=== PATIENT | male | born 1940 | race Caucasian/White ===

== ENCOUNTER 2018-08-01 06:24 | Inpatient (IN) ==
[2018-08-01] MEDS ORDERED: ASPIRIN PO ONE (06:39)
[2018-08-01] MEDS ORDERED: NITROGLYCERIN SL PRN (06:39)
--- NOTE | 2018-08-01 07:09 | Diag Imaging Result Doc PS360 ---
EXAM: CHEST-2 VIEWS 08/01/2018 HISTORY: chest pain TECHNIQUE: PA and lateral chest COMMENT: There are bilateral pleural effusions. This was also the case on 07/29/2018. There is increased interstitial opacity generally. This may be slightly worse than on the previous study. There is apical pleural thickening particularly on the right. Compared to 12/20/2016 the pleural fluid collections are greater in the interstitial opacities are worse although there was considerable interstitial opacity and pleural thickening at that time. IMPRESSION: Pleural effusions and pulmonary edema superimposed on pulmonary fibrosis. Electronically signed by Adrian Philip 08/01/2018 7:07 AM
[2018-08-01] MEDS ORDERED: ZOFRAN IV ONE (07:10)
[2018-08-01] MEDS ORDERED: DILAUDID IV ONE ×2 (07:10→09:18)
--- NOTE | 2018-08-01 07:15 | PROVIDER DOCUMENTATION ---
HPI-Abdominal Pain/GI Problem - General Chief Complaint: Chest Pain Stated Complaint: Abd pain Time Seen by Provider: 08/01/18 07:02 Source: patient, family () Allergies/Adverse Reactions: Patient Allergies Allergy/AdvReac Type Severity Reaction Status Date / Time No Known Allergies Allergy Verified 08/01/18 07:37 Home Medications: Home Medication List Medication Instructions Recorded Confirmed Last Taken Type Calcitriol 0.25 mcg PO EVERY OTHER DAY 10/13/14 02/05/17 02/05/17 07:30 History Isosorbide Mononitrate [Isosorbide 60 mg PO QAM 10/13/14 02/05/17 02/05/17 07:30 History Mononitrate ER] Metoprolol Succinate E.r. [Toprol 100 mg PO DAILY 10/13/14 02/05/17 02/05/17 07:30 History Xl] PRAVAstatin [Pravachol] 40 mg PO QHS 10/13/14 02/05/17 02/05/17 07:30 History Albuterol Sulfate [Ventolin Hfa] 2 puff IH Q4-6H PRN PRN 12/18/16 02/05/17 02/05/17 07:30 History Felodipine [Plendil] 10 mg PO DAILY 12/18/16 02/05/17 02/05/17 07:30 History Montelukast Sodium 10 mg PO DAILY 12/18/16 02/05/17 02/05/17 07:30 History Aspirin [Aspirin EC] 1 tab PO DAILY 12/19/16 02/05/17 01/30/17 History Fluticasone 50 Mcg Nasal [place] 1 spray LAWANDA DAILY 01/31/17 02/05/17 02/05/17 07:30 History [Flonase] Iron Fum,Ps/Folic/Bcomp,C No.9 1 each PO DAILY 01/31/17 02/05/17 02/05/17 07:30 History [Folivane-Plus Capsule] Nitroglycerin 0.4 mg SL PRN PRN 01/31/17 02/05/17 02/05/17 07:30 History Hydrocodone/APAP 7.5 mg/325 mg 1 ea PO Q4H PRN #25 tab 02/05/17 Unknown Rx [[place]-7.5] Iron Fum,Ps/Folic/Bcomp,C No.9 1 each PO DAILY 02/05/17 02/05/17 02/05/17 07:30 History [Folivane-Plus Capsule] - History of Present Illness-ABD Nature of Presenting Problems: Patient complains of epigastric pain worse since yesterday. Pain is described as sharp, worsened with deep breath or coughing. Also associated with vomiting and constipation. Last BM was yesterday but small. Denies fever, Abdominal Pain Onset Location: reports: epigastric Review of Systems - Adult - REVIEW OF SYSTEMS - ADULT Constitutional: reports: no symptoms reported Eyes: reports: no symptoms reported Ears, Nose, Mouth & Throat: reports: no symptoms reported Cardiovascular: reports: see HPI Respiratory: reports: see HPI Gastrointestinal: reports: see HPI Genitourinary: reports: no symptoms reported Musculoskeletal: reports: no symptoms reported Integumentary: reports: no symptoms reported Neurological: reports: no symptoms reported Psychiatric: reports: no symptoms reported Endocrine: reports: no symptoms reported Hematologic/Lymphatic: reports: no symptoms reported Allergic/Immunologic: reports: no symptoms reported All Other Systems: Reviewed and Negative Past History - Adult - PAST MEDICAL HISTORY-ADULT Review of Records: reports: Old Records Reviewed Cardiovascular: reports: HTN Respiratory: reports: denies history Genitourinary: reports: ESRD Physical Exam-General - PHYSICAL EXAM-ADULT Initial Vital Signs Reviewed: Yes - CONSTITUTIONAL General Appearance: alert, mild distress - EYES Eyes: PERRL/EOMI, pink conjunctivae, anisocoria - HEAD, EARS, NOSE, MOUTH & THROAT HENMT: normocephalic/atraumatic, moist mucous membranes, normal ENT inspection - NECK Neck: non-tender, full range of motion - RESPIRATORY Respiratory: chest non-tender, decreased breath sounds, accessory muscle use - CARDIOVASCULAR Cardiovascular: normal peripheral pulses, no edema, tachycardia - GASTROINTESTINAL (ABDOMEN) Abdominal Exam: soft, no organomegaly, no pulsatile mass, tenderness (epi gastric) - LYMPHATIC Lymphatic: no adenopathy - MUSCULOSKELETAL Back Exam: normal inspection, no CVA tenderness Extremity: normal range of motion, non-tender, normal gait - SKIN Integumentary: normal color, normal turgor - NEUROLOGIC 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, grossly normal, no motor/sensory deficits - PSYCHIATRIC Psych/Mental Status: normal mood/affect, normal thought content, normal thought process, oriented x 3 Progress - PLAN OF CARE/RESULTS Progress/Plan/Lab Results: Vital Signs - 8 hr 08/01/18 06:26 Temperature 97.9 F Pulse Rate 113 H Respiratory Rate 29 H Blood Pressure 131/71 O2 Sat by Pulse Oximetry 86 L Orders Category Date Time Status Cardiac Monitoring DIRECTED Care 08/01/18 06:40 Active Oxygen Therapy- ED Nursing DIRECTED Care 08/01/18 06:40 Active Saline Loc NOW Care 08/01/18 06:40 Active CHEST-2 VIEWS [RAD] Stat Exams 08/01/18 06:[address] ABDOMEN/PELVIS W/O CONTRAST [CT] Stat Exams 08/01/18 07:09 Ordered CBC WITH ELECTRONIC DIFF [HEME] Stat Lab 08/01/18 06:40 Uncollected CK PROFILE [SP CHEM] Stat Lab 08/01/18 06:40 Uncollected COMPREHENSIVE METABOLIC PANEL [CHEM] Stat Lab 08/01/18 06:40 Uncollected LIPASE [CHEM] Stat Lab 08/01/18 07:09 Uncollected PRO B-NATRIURETIC PEPTIDE Stat Lab 08/01/18 06:40 Uncollected PROTIME WITH INR [COAG] Stat Lab 08/01/18 06:40 Uncollected PTT [COAG] Stat Lab 08/01/18 06:40 Uncollected TROPONIN T Stat Lab 08/01/18 06:40 Uncollected Aspirin Med 08/01/18 06:39 Discontinued 325 mg PO NOW ONE Hydromorphone [Dilaudid] Med 08/01/18 07:10 Once 0.5 mg IV NOW ONE Nitroglycerin Sl [Nitroglycerin] Med 08/01/18 06:39 Active 0.4 mg SL Q5M PRN PRN Ondansetron [Zofran] Med 08/01/18 07:10 Once 4 mg IV NOW ONE CP/SOB/Palp >45 yrs of Age Stat Oth 08/01/18 06:39 Ordered Result Diagrams: 08/01/18 07:44 08/01/18 07:44 - REASSESSMENT Reassessment #1 Time Reassessed: 09:00 Status: improving - CONSULTS/PCP/HOSPITALIST Notification #1 *Consult/PCP/Hospitalist*: Dr. Kendall Time Discussed: 09:44 Consult Disposition: Will see in ED Departure - Departure Date of Disposition Decision: 08/01/18 Time of Disposition Decision: 09:44 DIAGNOSIS: Perforation bowel, Atrial fibrillation with rapid ventricular response Abdominal pain Qualifiers: Abdominal location: generalized Qualified Code(s): R10.84 - Generalized abdominal pain Disposition: ADMITTED INPATIENT 09 Certified Medical Emergency: Emergent Condition: Critical - Critical Care Note This patient required my direct & personal management of CC.: No Attestation - Physician/ KYE Attestation Patient care was provided by Advanced Practice Provider:: No The physician spent face to face time with patient:: Yes Advanced Practice Provider documentation review:: Supervising physician onsite and consulted in the evaluation and care of this patient. The physician did have a face to face encounter with the patient.
--- NOTE | 2018-08-01 08:21 | Diag Imaging Result Doc PS360 ---
CT ABDOMEN/PELVIS W/O CONTRAST - 08/01/2018 INDICATION: abd pain, acute kidney injury COMPARISON: None FINDINGS: There are moderate bibasilar pleural effusions. There is hazy interstitial pulmonary edema in the lung bases. There is advanced COPD. Heart size is top normal. The kidneys are severely atrophic bilaterally. No renal obstruction. There are several cysts in the kidneys bilaterally. There is severely, severely heavy calcification of the abdominal aorta and its pelvic branches. There is trace ascites. There is trace intraperitoneal free air. The source is unclear. There is significant diverticulosis of the distal colon. There is diffuse urinary bladder wall thickening that is nonspecific. Prostate and rectum are normal. No abnormal bowel dilation. There are advanced degenerative changes of the spine. No acute or suspicious bony lesion. IMPRESSION: 1. Congestive heart failure. 2. Obvious chronic renal failure with marked atrophy of the kidneys. 3. Advanced COPD. 4. Trace ascites. 5. Extremely severe vascular disease. 6. Trace peritoneal free air. 7. This report was discussed with Dr. Merchant on 08/01/2018 at 8:18 AM and was readback. This exam was performed using automated exposure control, adjustment of mA or kV according to patient size, and/or use of iterative reconstruction technique Electronically signed by Marino Fuentes 08/01/2018 8:19 AM
[2018-08-01 08:30] LABS: BASO# 0.02 X1000 (0.0-0.2); BASO% 0.2 % (0.0-0.8); EOS# 0.09 X1000 (0.0-0.7); EOS% 0.9 % (0.0-10.0); HEMOGLOBIN 12.6 g/dL (14.0-18.0); IMM GRAN# 0.07 X1000 (0.0-0.04); IMM GRAN% 0.7 % (0.0-0.5); LYMPH# 3.22 X1000 (1.2-3.4); LYMPH% 33.9 % (20.5-51.1); MCH 31.6 PG (27-31); MCHC 32.3 g/dL (33-37); MCV 97.7 FL (81-99); MONO# 0.73 X1000 (0.11-0.59); MONO% 7.7 % (1.7-9.3); MPV 10.7 FL (7.4-10.4); NEUT# 5.38 X1000 (1.4-6.5); NEUT% 56.6 % (42.2-75.2); PLT 273 X1000 (130-400); RBC 3.99 XMIL (4.7-6.1); RDW 16.4 % (11.5-14.5); WBC 9.51 X1000 (4.8-10.8)
[2018-08-01 08:33] LABS: INR 1.6; PROTIME 20.2 Seconds (11.0-16.0)
[2018-08-01 08:37] LABS: ALB/GLOB RATIO 1.1; ALBUMIN 3.7 g/dL (3.5-5.0); CALCIUM 8.9 mg/dL (8.8-10.2); POTASSIUM 4.4 mmol/L (3.5-5.1); TOTAL BILIRUBIN 0.45 mg/dL (0.20-1.00)
[2018-08-01 08:38] LABS: CREATININE 5.4 mg/dL (0.7-1.2)
[2018-08-01] MEDS ORDERED: DILAUDID ONE (09:21)
--- NOTE | 2018-08-01 10:44 | EKG Report ---
Test Performed on : 08/01/2018 06:29:50 AM Test Reason : ED. No order in [place] Blood Pressure : / mmHG Vent. Rate : 105 BPM Atrial Rate : 125 BPM P-R Int : 000 ms QRS Dur : 100 ms QT Int : 358 ms P-R-T Axes : 000 009 063 degrees QTc Int : 473 ms Atrial fibrillation. with rapid ventricular response. with premature ventricular or aberrantly conduc avinash complexes. Nonspecific T wave abnormality Abnormal ECG When compared with ECG of 05-FEB-2017 11:12, Vent. rate has increased BY 35 BPM Nonspecific T wave abnormality now evident in Anterolateral leads Unconfirmed Result
[2018-08-01] MEDS ORDERED: PROTONIX IV ONE ×3 (10:46→11:30)
[2018-08-01] MEDS ORDERED: ZOSYN 3.375 GM in NS 50 ML IV ONE (10:46)
[2018-08-01] MEDS ORDERED: NS 500 ML IV ONE (10:46)
[2018-08-01] MEDS ORDERED: SODIUM CHLORIDE 0.9% INJ ONE ×2 (10:46→11:20)
[2018-08-01] MEDS ORDERED: DIFLUCAN 100 MG/NS 100 MG/50 ML IVPB IV ONE (10:46)
[2018-08-01] MEDS ORDERED: ZOFRAN IV PRN (10:56)
[2018-08-01] MEDS ORDERED: PROTONIX 80 MG in NS 80 ML IV ONE (10:56)
[2018-08-01] MEDS: ZOSYN 2.25 GM in NS 50 ML IV SCH ×2 (11:15→20:33)
--- NOTE | 2018-08-01 11:21 | ED EKG INTERP ---
This chart was entered by Dunia Katz Scribe, acting as scribe for Amos Merchant MD. EKG Interpretation - EKG Time of EKG reading by physician:: 06:29 EKG Read and Signed by:: Amos Merchant EKG Interpretation (*Must complete 3 of following elements*): Abnormal Rate: 105 Rhythm: afib with rvr with premature ventricular or aberrantly conducted complexes [place]: normal QRS: normal [place] Interval: normal ST Wave: normal Comments: nonspecific t wave abnormality Attestation - Physician/ KYE Attestation Patient care was provided by Advanced Practice Provider:: No The physician spent face to face time with patient:: Yes Advanced Practice Provider documentation review:: Supervising physician onsite and consulted in the evaluation and care of this patient. The physician did have a face to face encounter with the patient. This chart was documented by the indicated scribe, (Dunia Katz Scribe) and accurately reflects the services I performed and decisions made by me, Amos Merchant MD, as attested by the provider's signature.
[2018-08-01] MEDS: NS 1,000 ML IV SCH (11:45)
[2018-08-01] MEDS ORDERED: DIFLUCAN 100 MG/NS 100 MG/50 ML IVPB IV SCH (12:00)
[2018-08-01] MEDS ORDERED: PROTONIX 80 MG in NS 80 ML IV SCH (12:00)
--- NOTE | 2018-08-01 13:29 | Diag Imaging Result Doc PS360 ---
EXAM: FLAT/UPRIGHT ABD/1 VIEW CHEST HISTORY: abdominal pain, free air TECHNIQUE: Flat and upright with chest, three views COMPARISON: 6:50 AM FINDINGS: There are increased interstitial markings throughout the lungs. These are more prominent than on the prior study. Small to moderate pleural effusions as well. No bowel obstruction. No organomegaly. Free air appreciated on the recent CT is not demonstrated on the plain films. IMPRESSION: Worsening lung infiltrates. Electronically signed by Delbert Vigil 08/01/2018 1:26 PM
--- NOTE | 2018-08-01 13:31 | HISTORY AND PHYSICAL ---
CHIEF COMPLAINT: Abdominal pain. HISTORY OF PRESENT ILLNESS: This is a 78-year-old male who reports a 3-day history of epigastric pain with nausea and occasional vomiting. The pain has been constant and progressive, worsened with deep breaths or direct pressure, lessened some with Dilaudid in the emergency room. No fever or chills although he did break out in a sweat earlier this morning. He has had no prior episodes like this. He denies regular use of NSAID. He did chew 5 aspirin this morning because he was concerned he had a heart attack. He does have chronic dyspnea on exertion, and he does wear oxygen at night for his chronic pulmonary fibrosis and emphysema. He denies hematemesis, diarrhea, constipation or other systemic complaints. PAST MEDICAL HISTORY: Coronary artery disease, status post stents; PR x 3; carotid stenosis; end- stage renal disease; pulmonary fibrosis; emphysema; pulmonary hypertension; high blood pressure. PAST SURGICAL HISTORY: Open appendectomy; left carotid endarterectomy; left brachiocephalic AV fistula. ALLERGIES: No known drug allergies. HOME MEDICATIONS: Tums after meals; Pravastatin 40 mg p.o. daily; Luisa-Libby; Mirtazapine; Eliquis 2.5 mg 1 p.o. b.i.d.; Ventolin inhaler 98 mcg p.r.n.; fluticasone 50 mcg daily. SOCIAL HISTORY: He has quit smoking but previously has a 79-38-vnhv-year history. No alcohol or illicit drug use. FAMILY HISTORY: Notable for coronary artery disease. REVIEW OF SYSTEMS: Ten systems reviewed and negative except as noted above. PHYSICAL EXAMINATION: VITAL SIGNS: Temperature 97.4; pulse 112; respiratory rate 19; blood pressure 124/80; O2 sat 97%. GENERAL: This is an elderly chronically ill-appearing male who looks his stated age. He is ill- appearing but not in acute distress. HEENT: Normocephalic, atraumatic. Extraocular muscles intact. Pupils equal, round and reactive to light. Sclerae anicteric. NECK: Supple. No thyromegaly. CARDIOVASCULAR: Tachycardic and regular. RESPIRATORY: Bilateral breath sounds but decreased in the bases. No increased work of breathing. GASTROINTESTINAL: Soft, nondistended. He is tender in the epigastrium. No rebound or guarding. No organomegaly or mass. No hernias. EXTREMITIES: No clubbing, cyanosis, or edema. SKIN: Warm and dry. No rash. MUSCULOSKELETAL: Moves all extremities equally and well. LABORATORY: White blood cell count 9.5, hemoglobin 12.6, hematocrit 39, platelet count 273,000, INR 1.6, PTT 35, sodium 136, potassium 4.4, chloride 92, C02 24, BUN 37, creatinine 5.4, glucose 155, calcium 8.9, AST 85, ALT 192, total bilirubin 0.4, alkaline phosphate 117, BNP greater than 35,000, serum lactate 1.7, lipase 27. IMAGING: Chest x-ray this morning shows pleural effusions, pulmonary edema and superimposed pulmonary fibrosis. His pleural effusions are slightly worse than the previous x-ray on 07/29/2018. CT of the abdomen and pelvis was performed without contrast showing moderate bibasilar pleural effusion, hazy interstitial pulmonary edema, advanced COPD, cardiomegaly, atrophic kidneys, severely calcified abdominal aorta and pelvic branches. There is trace ascites. There is trace intraperitoneal free air, the source is unclear. There is significant diverticulosis but not diverticulitis of the distal colon. There is diffuse bladder wall thickening. ASSESSMENT AND PLAN: A 78-year-old male with abdominal pain and probable perforated viscus. It appears to be a limited amount of perforation at this time. His hemodynamic status right now is doing okay. He is a high-risk patient, given his coronary artery disease and pulmonary fibrosis and emphysema. My plan for the time being is a Protonix drip, saline hydration, Zosyn, Diflucan and close observation. Dr. Gonsalez will assist with his dialysis needs. Dr. Ornelas has been contacted and will assist with his pulmonary needs and critical care. I have discussed this with the family and the possibility to need to operate to explore and handle whatever his bowel injury is, but for now we are in agreement to treat him conservatively over the next few hours and see how he does. cc: Amos Kendall MD
--- NOTE | 2018-08-01 14:39 | EKG Report ---
Test Performed on : 08/01/2018 10:57:01 AM Test Reason : ED. No order in [place] Blood Pressure : / mmHG Vent. Rate : 124 BPM Atrial Rate : 131 BPM P-R Int : 000 ms QRS Dur : 092 ms QT Int : 296 ms P-R-T Axes : 000 -03 021 degrees QTc Int : 425 ms Atrial fibrillation. with rapid ventricular response. Nonspecific T wave abnormality Abnormal ECG When compared with ECG of 01-AUG-2018 10:56, (Unconfirmed) QRS axis shifted right Unconfirmed Result
[2018-08-01] MEDS: DILAUDID IV PRN (16:58)
[2018-08-02] MEDS: DILAUDID IV PRN ×4 (01:03→23:13)
--- NOTE | 2018-08-02 01:05 | PULMONOLOGY CONSULTATION ---
DATE: 08/01/2018 REQUESTING PHYSICIAN: Dr. Amos Kendall. REASON FOR CONSULTATION: Hypoxemic respiratory failure in a patient known to you. HISTORY OF PRESENT ILLNESS: Mr. Bassett is a 78-year-old white male with an 80 pack-year history for tobacco, COPD, biapical fibrosis, with pleural effusions, who is followed in my clinic. The patient had a large pleural effusion which was transudative in character and subsequently resolved with initiation of hemodialysis. The patient did well for a while, but has been losing weight. He was recently seen in my office and was hypoxemic upon arrival, and did have a cough and bronchitis. He was initiated on oxygen in my office and an antibiotic for the bronchitis with plans to see Dr. Gonsalez to see if his dry weight could be further reduced given increasing pleural effusions. The patient developed some abdominal pain yesterday and it became more severe this morning. He also had episode of vomiting and constipation. He underwent a CT scan of the abdomen and pelvis which revealed evidence of free air. He has been evaluated by Dr. Kendall, who feels this is most likely a perforated gastric ulcer. He has been initiated on acid suppression and antibiotics in an attempt to avoid an abdominal surgery. The patient is currently resting quietly. PAST MEDICAL HISTORY: 1. Coronary artery disease status post myocardial infarction and stent placement. 2. End-stage renal disease, on hemodialysis. 3. Chronic obstructive pulmonary disease with component of pulmonary fibrosis. 4. Pulmonary hypertension. 5. Bilateral pleural effusions. 6. Status post left carotid endarterectomy. 7. Status post appendectomy. 8. History of nephrolithiasis. 9. History of bilateral thoracentesis. SOCIAL HISTORY: The patient has an 80 pack-year history for tobacco but does not currently smoke. No significant alcohol use. FAMILY HISTORY: Positive for strokes, coronary artery disease, diabetes mellitus, dementia, and aneurysms. REVIEW OF SYSTEMS: Limited and primarily related to the abdominal pain. PHYSICAL EXAMINATION: General: Reveals a frail, chronically ill-appearing male who currently appears comfortable. Vital signs: Blood pressure 98/64, heart rate 105, respiratory rate 17, oxygen saturation 93% on supplemental oxygen. HEENT: Pupils are equal and reactive. Oropharynx is clear. Neck: Supple. Chest: Reveals prolonged expiratory phase with decreased breath sounds in the lung bases. Cardiac: S1, S2. Abdomen: Soft with diminished bowel sounds. Extremities: Without edema. LABORATORIES: White blood count 9.5, hemoglobin 12.6, platelet count 273,000. Sodium 136, potassium 4.4, chloride 92, bicarbonate 24, BUN 57, creatinine 3.4. ProBNP 35,000. IMPRESSION: A 78-year-old with 1. Acute hypoxemic respiratory failure. 2. Bilateral pleural effusions. 3. Perforated abdominal viscus. 4. End-stage renal disease. 5. Coronary artery disease. DISCUSSION: A 78-year-old with problems outlined above. He is a high risk surgical candidate. He does have significant pleural effusions, but will not be able to tolerate aggressive dialysis during this hospitalization while he has an acute perforated viscus. The patient may require thoracentesis during this admission. PLAN: 1. Agree with observation in an attempt to avoid surgery. 2. Continue oxygen for hypoxemic respiratory failure. 3. Bronchodilators p.r.n. 4. Prognosis is guarded. cc: MD Amos Vázquez MD
[2018-08-02] MEDS: NS 1,000 ML IV SCH ×3 (01:07→22:43)
[2018-08-02] MEDS: ZOSYN 2.25 GM in NS 50 ML IV SCH ×3 (03:21→22:42)
[2018-08-02 04:48] LABS: BLOOD TYPE ARTERIAL; SAMPLE BLOOD
[2018-08-02 04:49] LABS: ALLEN TEST YES; BE -2.6 mmoll (-3.0-3.0); HCO3-(ACT) 22.8 mmoll (20.0-26.0); METHB 0.5 % (0.0-1.5); O2(CT) 15.1 mL/dL (15.0-23.0); O2HB 92.8 % (95.0-99.0); PO2(98.6) 80 mmHg (60-100); SAO2 94.1 % (95.0-100.0); THB 11.5 g/dL (11.5-17.4); pH(98.6) 7.27 (7.35-7.45)
[2018-08-02 04:50] LABS: MODALITY VENTIMASK; PCO2(98.6) 54 mmHg (35-45)
[2018-08-02 06:20] LABS: HEMATOCRIT 36.3 % (42.0-52.0); HEMOGLOBIN 11.6 g/dL (14.0-18.0); MPV 10.8 FL (7.4-10.4); RBC 3.63 XMIL (4.7-6.1); RDW 16.9 % (11.5-14.5); WBC 14.18 X1000 (4.8-10.8)
[2018-08-02 06:49] LABS: CALCIUM 8.5 mg/dL (8.8-10.2); CREATININE 6.4 mg/dL (0.7-1.2); POTASSIUM 5.9 mmol/L (3.5-5.1)
[2018-08-02] MEDS ORDERED: HEPARIN IV PRN (08:18)
[2018-08-02] MEDS ORDERED: NS 2,000 ML MISC PRN (08:18)
--- NOTE | 2018-08-02 08:50 | Diag Imaging Result Doc PS360 ---
ABDOMEN FLAT/UPRIGHT - 08/02/2018 INDICATION: abdominal pain COMPARISON: 08/01/2018 FINDINGS: There is a nonobstructive bowel gas pattern. No free air or abdominal calcifications. IMPRESSION: No acute disease. Electronically signed by Marino Fuentes 08/02/2018 8:47 AM
[2018-08-02] MEDS ORDERED: LMX 5 CREAM TOP ONE (09:01)
[2018-08-02] MEDS: VENTOLIN HFA INH PRN (09:30)
[2018-08-02] MEDS: FLONASE NAS SCH (11:40)
--- NOTE | 2018-08-02 19:22 | PULMONOLOGY PROGRESS NOTE ---
DATE: 08/02/2018 SUBJECTIVE: The patient is awake, alert, and conversant. He reports his shortness of breath has diminished. He reports his abdominal pain has diminished. OBJECTIVE: HEENT: Pupils are equal and reactive. Oropharynx appears clear. Neck: Supple. Chest: Reveals decreased breath sounds, both bases. Cardiac exam: S1, S2. Abdomen: Reveals mild tenderness with palpation. No significant rebound. Extremities: Reveal trace edema. IMAGING STUDIES: KUB abdomen reveals no acute disease. LABORATORIES: White blood count 14.2, hemoglobin 11.6, platelet count 220,000. Arterial blood gas reveals pH of 7.27, pCO2 of 84, pO2 of 80. Sodium 139, potassium 5.9, chloride 97, BUN 45, creatinine 6.4. IMPRESSION: A 78-year-old with: 1. Acute hypoxemic respiratory failure. 2. Acute hypercapnic respiratory failure. 3. Bilateral pleural effusions. 4. Perforated abdominal viscus with free air under the diaphragm. 5. End-stage renal disease. 6. Coronary artery disease. PLAN: 1. Continue observation of acute abdominal perforated viscus as outlined by General Surgery. 2. Continue oxygen for hypoxemic respiratory failure. 3. Continue bronchodilators. 4. Continue ICU monitoring. The patient remains critically ill. cc: MD Amos Vázquez MD
--- NOTE | 2018-08-02 22:40 | NEPHROLOGY CONSULTATION ---
DATE: 08/02/2018 REASON FOR CONSULTATION: Assistance with management. ATTENDING PHYSICIAN: Dr. Kendall. I was contacted directly by him to request my assistance. HISTORY OF PRESENT ILLNESS: Mr. Bassett is a 78-year-old, white male, who is well known to us. He has advanced COPD as well as hypertension, hyperlipidemia, vascular disease and ESRD. He states that he was in his usual health when he went to see Dr. Ornelas on . He states thereafter he began having abdominal pain and nausea. His symptoms were persistent on Saturday so he came to the emergency room for evaluation. CT of the abdomen disclosed subphrenic air and so he was evaluated by surgery and felt to have a perforated duodenal ulcer. Given his general health status, Dr. Kendall opted to observe without intervention. He has been in the intensive care unit since that time. Blood pressure is marginal but this is a frequent problem for him. He does not have chills, fevers, sweats, night sweats, etc. PAST MEDICAL HISTORY: As above. HOME MEDICATIONS: Include pravastatin, albuterol, montelukast, aspirin, fluticasone, nitroglycerin, multivitamin, folate, Integra, apixaban, mirtazapine. ALLERGIES: None. SOCIAL HISTORY, FAMILY HISTORY, REVIEW OF SYSTEMS: Otherwise noncontributory. PHYSICAL EXAMINATION: Vital Signs: Blood pressure 101/53, heart rate 117, respirations 31, afebrile. Generally: He was asleep, but easily arousable. No acute distress. Skin: Warm and dry. HEENT: Conjunctivae are pink. Pupils are equal. Oropharynx is dry. Neck: Neck veins are not distended. Trachea is midline. Heart: PMI is nondisplaced. Irregular rhythm, with intermittent tachycardia. No murmurs. Lungs: Have equal breath sounds. No crackles or wheezes. Abdomen: Mildly tender. Especially in the epigastrium. Bowel sounds are not present. Extremities: Have no edema, clubbing, or cyanosis. Neurologic: Grossly nonfocal. IMPRESSION: 1. Chronic kidney disease 5D. Tolerated dialysis well today. He is euvolemic. His potassium is moderately elevated this morning at 5.9, but that is appropriately managed with dialysis. 2. Hypotension. Chronic with him and he tolerates blood pressure in the 80s without difficulties so this is not addressed. 3. His antibiotics are dosed appropriately for his renal function. Continue care. cc: MD Amos Fernández MD
[2018-08-03 04:44] LABS: ALLEN TEST YES; BE 1.9 mmoll (-3.0-3.0); BLOOD TYPE ARTERIAL; HCO3-(ACT) 26.4 mmoll (20.0-26.0); O2(CT) 14.2 mL/dL (15.0-23.0); O2HB 97.3 % (95.0-99.0); PCO2(98.6) 41 mmHg (35-45); PO2(98.6) 140 mmHg (60-100); SAMPLE BLOOD; SAO2 99.4 % (95.0-100.0); THB 10.2 g/dL (11.5-17.4); pH(98.6) 7.42 (7.35-7.45)
[2018-08-03 04:45] LABS: MODALITY VENTIMASK
[2018-08-03] MEDS: ZOSYN 2.25 GM in NS 50 ML IV SCH ×3 (05:33→22:08)
--- NOTE | 2018-08-03 07:52 | Diag Imaging Result Doc PS360 ---
FLAT/UPRIGHT ABD/1 VIEW CHEST - 08/03/2018 INDICATION: pain TECHNIQUE: COMPARISON: 08/02/2018, 08/01/2018 FINDINGS: Stable moderate right and small left pleural effusions. Stable dense interstitial infiltrates throughout the lungs diffusely and bilaterally. Stable cardiomegaly. There is a nonobstructive bowel gas pattern. No free air or abnormal calcifications. IMPRESSION: No change from prior exams. Extensive abnormalities in the chest. No acute process in the abdomen. Electronically signed by Marino Fuentes 08/03/2018 7:50 AM
--- NOTE | 2018-08-03 08:11 | GENERAL SURGERY PROGRESS NOTE ---
DATE: 08/03/2018 SUBJECTIVE: 7:55 in the morning. He is afebrile. Says he feels about the same as yesterday. His heart rate is 108, blood pressure is 98/59. DIAGNOSTIC DATA: His white count is pending this morning. His blood gasses look okay on 50% Ventimask. X-ray of the abdomen does not show any free air. ASSESSMENT: We will continue with antibiotic therapy. If he continues stable tomorrow, perhaps he can start on some clear liquids. We will consider continue with our conservative course of action for now. cc: MD Amos Mcnally MD
[2018-08-03 08:47] LABS: ALB/GLOB RATIO 0.6; ALBUMIN 2.5 g/dL (3.5-5.0); CALCIUM 8.3 mg/dL (8.8-10.2); CREATININE 4.1 mg/dL (0.7-1.2); PHOSPHORUS 6.3 mg/dL (2.7-4.5); POTASSIUM 4.6 mmol/L (3.5-5.1); TOTAL BILIRUBIN 0.57 mg/dL (0.20-1.00); TOTAL PROTEIN 6.4 g/dL (6.3-8.3)
[2018-08-03] MEDS: VENTOLIN HFA INH PRN (09:54)
[2018-08-03] MEDS: FLONASE NAS SCH (10:46)
[2018-08-03 11:50] LABS: BASO# 0.04 X1000 (0.0-0.2); BASO% 0.3 % (0.0-0.8); EOS# 0.21 X1000 (0.0-0.7); EOS% 1.3 % (0.0-10.0); HEMATOCRIT 36.1 % (42.0-52.0); HEMOGLOBIN 11.3 g/dL (14.0-18.0); IMM GRAN# 0.04 X1000 (0.0-0.04); IMM GRAN% 0.3 % (0.0-0.5); LYMPH# 3.42 X1000 (1.2-3.4); LYMPH% 21.5 % (20.5-51.1); MCH 31.7 PG (27-31); MCHC 31.3 g/dL (33-37); MCV 101.4 FL (81-99); MONO# 1.18 X1000 (0.11-0.59); MONO% 7.4 % (1.7-9.3); MPV 10.3 FL (7.4-10.4); NEUT# 11.03 X1000 (1.4-6.5); NEUT% 69.2 % (42.2-75.2); PLT 194 X1000 (130-400); RBC 3.56 XMIL (4.7-6.1); RDW 17.1 % (11.5-14.5); WBC 15.92 X1000 (4.8-10.8)
[2018-08-03] MEDS: DILAUDID IV PRN ×2 (13:49→15:51)
--- NOTE | 2018-08-03 14:58 | PULMONOLOGY PROGRESS NOTE ---
DATE: 08/03/2018 SUBJECTIVE: The patient is awake and alert. He reports his abdominal pain has diminished. He continues to have significant dyspnea. OBJECTIVE: Vital Signs: Maximum temperature in the last 24 hours is 99.8 degrees, blood pressure 90/61, heart rate 117, oxygen saturation 96% on 5 L per nasal cannula. HEENT: Pupils are equal and reactive. Oropharynx is clear. Neck: Supple. Chest: Reveals diminished breath sounds both lung bases. Cardiac: Increased rate, regular rhythm. Abdomen: Soft. Bowel sounds are diminished. Extremities: Reveal no significant peripheral edema. LABORATORIES: Chest x-ray reveals pleural effusions and infiltrates, right greater than left, cardiomegaly. No free air noted. Arterial blood gas on 50% Ventimask, pH 7.42, pCO2 of 41, pO2 of 140. IMPRESSIONS: A 78-year-old with: 1. Acute hypoxemic respiratory failure. 2. Chronic hypercapnic respiratory failure. 3. Bilateral pleural effusions. 4. Perforated abdominal viscus with free air into the diaphragm. 5. Coronary artery disease. 6. End-stage renal disease. 7. Dyspnea at rest. PLAN: 1. Continue management of abdominal perforation per General Surgery. 2. Continue oxygen for hypoxemic respiratory failure. 3. Request thoracentesis tomorrow for ongoing dyspnea. 4. Continue bronchodilators. 5. Continue ICU monitoring. Patient remains critically ill. cc: MD Amos Vázquez MD
[2018-08-03] MEDS: NS 1,000 ML IV SCH (15:51)
[2018-08-04] MEDS: DILAUDID IV PRN ×5 (02:10→22:13)
[2018-08-04] MEDS: ZOSYN 2.25 GM in NS 50 ML IV SCH ×3 (06:02→22:08)
[2018-08-04] MEDS ORDERED: NS 500 ML IV ONE ×3 (06:25→14:32)
--- NOTE | 2018-08-04 06:32 | Diag Imaging Result Doc PS360 ---
FLAT/UPRIGHT ABD/1 VIEW CHEST - 08/04/2018 INDICATION: perforation TECHNIQUE: COMPARISON: 08/03/2018 FINDINGS: Stable extensive bilateral infiltrates/pulmonary edema. Stable pleural effusions right greater than left. Stable mild cardiomegaly. There is very little bowel gas. No evidence of obstruction or free air. IMPRESSION: No change from prior. Electronically signed by Marino Fuentes 08/04/2018 6:29 AM
[2018-08-04 06:34] LABS: ALLEN TEST YES; BLOOD TYPE ARTERIAL; HCO3-(ACT) 23.3 mmoll (20.0-26.0); METHB 0.3 % (0.0-1.5); O2(CT) 14.6 mL/dL (15.0-23.0); O2HB 94.7 % (95.0-99.0); PO2(98.6) 89 mmHg (60-100); SAMPLE BLOOD; SAO2 95.8 % (95.0-100.0); THB 10.9 g/dL (11.5-17.4); pH(98.6) 7.29 (7.35-7.45)
[2018-08-04] MEDS ORDERED: NS 500 ML ONE (06:34)
[2018-08-04 06:35] LABS: MODALITY CANNULA; PCO2(98.6) 52 mmHg (35-45)
[2018-08-04 06:38] LABS: INR 1.7; PROTIME 21.3 Seconds (11.0-16.0)
[2018-08-04 06:39] LABS: PTT 42.6 Seconds (22.3-41.8)
[2018-08-04 06:50] LABS: BASO# 0.03 X1000 (0.0-0.2); BASO% 0.2 % (0.0-0.8); EOS# 0.16 X1000 (0.0-0.7); EOS% 1.2 % (0.0-10.0); HEMATOCRIT 34.6 % (42.0-52.0); HEMOGLOBIN 10.7 g/dL (14.0-18.0); IMM GRAN# 0.04 X1000 (0.0-0.04); IMM GRAN% 0.3 % (0.0-0.5); LYMPH# 2.91 X1000 (1.2-3.4); LYMPH% 21.7 % (20.5-51.1); MCH 31.2 PG (27-31); MCHC 30.9 g/dL (33-37); MCV 100.9 FL (81-99); MONO# 1.02 X1000 (0.11-0.59); MONO% 7.6 % (1.7-9.3); NEUT# 9.24 X1000 (1.4-6.5); PLT 184 X1000 (130-400); RBC 3.43 XMIL (4.7-6.1)
[2018-08-04 07:21] LABS: POTASSIUM 4.6 mmol/L (3.5-5.1)
[2018-08-04 07:22] LABS: ALBUMIN 2.4 g/dL (3.5-5.0); CALCIUM 8.3 mg/dL (8.8-10.2); CREATININE 5.9 mg/dL (0.7-1.2); PHOSPHORUS 8.3 mg/dL (2.7-4.5)
[2018-08-04] MEDS ORDERED: D50W SYRINGE IV ONE (07:36)
[2018-08-04] MEDS ORDERED: D50W SYRINGE IV PRN (07:37)
[2018-08-04] MEDS: FLONASE NAS SCH (08:34)
[2018-08-04] MEDS: NEO-SYNEPHRINE 50 MG in NS 250 ML IV SCH (09:52)
--- NOTE | 2018-08-04 10:04 | NEPHROLOGY PROGRESS NOTE ---
DATE: 08/04/2018 SUBJECTIVE: Patient currently resting in bed. He is agitated. He is in mild distress secondary to respiratory status. Being placed on a Ventimask. OBJECTIVE: Vital Signs: Temperature 98.5 degrees, pulse 115, respiratory rate 33, blood pressure 84/55. Intake 1.3 L. Output has not been measured. General: This is an elderly gentleman currently resting in bed, again in mild distress secondary to his respiratory status. He is anxious. HEENT: Normocephalic, atraumatic. His oral mucosa is dry. His pupils are equal. Neck: Supple. There is no JVD. Cardiovascular: Tachy rate. Irregular rhythm. Pulmonary: He has decreased breath sounds, shallow inspiratory effort with some scattered rales. Abdomen: Exquisitely tender. He has a binder in place. : He has a Gonzáles catheter. Extremities: No edema, clubbing, cyanosis. Integumentary: Skin is extremely thin, warm and dry. Neurologic: Again anxious. LABORATORY DATA: WBC of 13.4, hemoglobin 10.7. Sodium 143, potassium 4.6, CO2 27, BUN 49, creatinine 5.9. ASSESSMENT AND PLAN: 1. Chronic kidney disease 5D. The patient last underwent dialysis on Saturday the . His fluid volumes have been stable. His potassium today is 4.6, and he has no absolute indications for dialysis today. The patient now has some hypotensive episodes and is having worsening respiratory status. We will hold his dialysis today unless additional information warrants otherwise. 2. Hypotension. He chronically has blood pressures in the 80s. Again he is not on dialysis at this time and pressor support has been ordered as warranted. 3. Medication review. No changes. 4. Worsening respiratory status with hypoxemic and hypercapnic respiratory failure. Patient has been placed on BiPAP. 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 Dictated by SOPHIA Adair for Bayron Gonsalez MD Face to face encounter, data reviewed, discussed with Masoud Hernandez on 08/04/18. I agree with the above assessment and plan of care. cc: MD Amos Fernández MD [facility]
--- NOTE | 2018-08-04 10:34 | GENERAL SURGERY PROGRESS NOTE ---
DATE: 08/04/2018 SUBJECTIVE: The patient reportedly had some improvement in pain over the weekend. However, this morning he was complaining of pain and recently was administered IV Dilaudid. No nausea or vomiting. He remains short of breath. OBJECTIVE: Vital Signs: Pulse 115, blood pressure 70s to 80s systolic overnight, O2 saturation 95 to 97 percent on 4 L. General: He is somnolent but arousable, mildly confused. Respiratory: Tachypneic with short shallow breaths. CV: Tachycardic. GI: Tender diffusely, more so in the epigastrium. Nondistended. Hypoactive bowel sounds. LABORATORY DATA: White blood cell count 13,000, hemoglobin 10.7, hematocrit 34. INR 1.7, PTT 42.6. pH 7.29, pCO2 52, PaO2 89, bicarb 23, base deficit -2, lactate 0.8. Electrolytes reviewed and unremarkable. Glucose this morning 38, after treatment 148, calcium 8.3, phosphorus 8.3. IMAGING: Flat and upright abdominal x-ray this morning shows stable extensive bilateral infiltrates and pulmonary edema with stable pleural effusions, right greater than left, stable mild cardiomegaly. There is very little bowel gas and no evidence of obstruction or free air. ASSESSMENT AND PLAN: A 78-year-old male with multiple medical comorbidities and concern for perforated peptic ulcer on admission. Initially treated conservatively. He continues to be in pain. His hemodynamic status is somewhat unstable today. Andrés-Synephrine is being started and I plan to rescan his abdomen with oral contrast only to look for any radiographic evidence of worsening perforation or leakage. If that is the case, I am afraid we will have to try to operate and see what we can find and repair despite his inherent risks. I have discussed this with his family and will follow up with him today. cc: Amos Kendall MD
--- NOTE | 2018-08-04 11:34 | Diag Imaging Result Doc PS360 ---
US THORACENTESIS W/IMAGE GUIDE - 08/04/2018 INDICATION: pleural effusion, dyspnea TECHNIQUE: The risks and benefits of the procedure were discussed with the patient. All questions were answered. Written and verbal informed consent was obtained. Overlying skin was prepped and draped in sterile fashion. Anesthesia was achieved with injection of 10 cc of 1% lidocaine. COMPARISON: X-ray from this morning FINDINGS: 1.5 L was successfully drained from the right lung base. There are no complications from the procedure. IMPRESSION: Successful and uncomplicated ultrasound-guided right sided thoracentesis. Electronically signed by Marino Fuentes 08/04/2018 11:32 AM
--- NOTE | 2018-08-04 12:04 | Diag Imaging Result Doc PS360 ---
EXAM: CHEST-PORTABLE 08/04/2018 HISTORY: NGT placement TECHNIQUE: AP portable at 1154 COMMENT: There is an NG tube with its tip in the stomach. There are bilateral pleural effusions. The pleural effusions and pulmonary opacities present on 08/04/2018 at 0508 appear to have improved slightly. IMPRESSION: NG tube in the stomach. Electronically signed by Adrian Philip 08/04/2018 12:01 PM
[2018-08-04 13:09] LABS: AMYLASE BODY FLUID 53 U/L; GLUCOSE BODY FLUID 59 mg/dL; LDH BODY FLUID 92 U/L; TOTAL PROT BODY FLUID 2.3 g/dL
[2018-08-04 13:20] LABS: BODY FLUID SOURCE PLEURAL FLUID; SPECIMEN PLEURAL FLUID
[2018-08-04 13:21] LABS: PH BODY FLUID 8; WBC BF 431 /cumm
[2018-08-04 13:25] LABS: MONOS 91 %; POLYS 9 %
--- NOTE | 2018-08-04 13:46 | Diag Imaging Result Doc PS360 ---
EXAM: CT ABD/PELVIS W/ORAL CONT ONLY 08/04/2018 HISTORY: abd pain TECHNIQUE: This exam was performed using automated exposure control, adjustment of mA or kV according to patient size, and/or use of iterative reconstruction technique. COMMENT: There are severe emphysematous changes demonstrated in the lung bases. There may be interstitial pulmonary edema. There are bilateral pleural effusions more so on the left than the right. There has been a decrease in the volume of pleural fluid on the right compared to the previous study of 08/01/2018. There is a hiatal hernia. There is ascites. There is a small amount of residual free air in the nondependent portions of the abdomen. There is some free air seen in the casey hepatis. This has diminished since the previous study. There is no evidence of extravasated contrast. The spleen is not enlarged. The gallbladder is slightly distended. There are multiple cysts arising from the kidneys. There is atherosclerotic calcification throughout the aorta and its branches including both renal arteries. There is infrarenal abdominal aortic aneurysm with a maximum AP diameter of 2.5 cm. Compared to the previous study this has not changed significantly. There is some stool in the colon. The small bowel is not distended. There is diverticulosis in the sigmoid colon without definite diverticulitis. The urinary bladder is not distended. The regional skeleton is stable in appearance. IMPRESSION: Improved right pleural effusion. Pulmonary edema. Improved pneumoperitoneum. Ascites. Electronically signed by Adrian Philip 08/04/2018 1:43 PM
[2018-08-04] MEDS: NS 1,000 ML IV SCH (15:31)
[2018-08-04] MEDS ORDERED: SODIUM CHLORIDE 0.9% INJ SCH (16:45)
[2018-08-04] MEDS: LIPOSYN 20% 250 ML IV SCH (17:37)
[2018-08-04] MEDS: PROTONIX IV SCH (17:37)
[2018-08-04] MEDS: CLINIMIX E 4.25%-5% SOLUTION 1,000 ML IV SCH (17:37)
--- NOTE | 2018-08-04 17:47 | GENERAL SURGERY PROGRESS NOTE ---
DATE: 08/04/2018 TIME: 1620 SUBJECTIVE: The patient is sleeping but arousable. He denies pain, but recently had pain medicine. OBJECTIVE: He is afebrile. Pulse 115 to 130s, systolic blood pressure 104, O2 saturation 92%.General: He is arousable, appears weak. He can interact and follows some commands but is somewhat confused. Respiratory: Tachypneic and short shallow breaths. CV: Tachycardic. Gastrointestinal: Soft, nondistended, mildly tender. No rebound or guarding. IMAGING: A CT of the abdomen and pelvis today showed improved right pleural effusion. He continues to have pulmonary edema, ascites. He has improved pneumoperitoneum. There is no evidence of extravasated contrast but there is a probable area of contained perforation at the distal stomach at the prepyloric to duodenal region in my opinion. ASSESSMENT/PLAN: 78-year-old male with probable perforated peptic ulcer. It appears to be contained. He remains critically ill with tachycardia, hypoxia, episodes of hypotension. He has chronic pulmonary hypertension, chronic obstructive pulmonary disease, pleural effusions and end- stage renal disease. We will continue supportive care. I do not think operating on him gives him any better chance of survival. The perforation appears to be contained. We will keep him NPO, start Clinimix and lipids for nutrition. Continue Protonix, Zosyn and Diflucan. We will also pursue left pleural thoracentesis to assist with his respiratory status tomorrow. cc: Amos Kendall MD
--- NOTE | 2018-08-04 19:35 | PULMONOLOGY PROGRESS NOTE ---
DATE: 08/04/2018 SUBJECTIVE: Patient is arousable. He has moderate work of breathing. OBJECTIVE: Vital Signs: Blood pressure 99/54, heart rate 118, respiratory rate 16, oxygen saturation 95%. HEENT: Pupils are equal and reactive. Oropharynx clear. Neck: Supple. Chest: Diminished breath sounds, right greater than left base. Cardiac: S1, S2. Abdomen: Soft, with mild tenderness to percussion. Extremities: Slightly cool to the touch. LABORATORIES: Chest x-ray this morning reveals bilateral infiltrates and pleural effusions, right greater than left, with mild cardiomegaly. CT scan of the abdomen and pelvis reveals decreased pleural effusion following thoracentesis, with decreased pneumoperitoneum. Pleural fluid reveals pH 8.0, white blood count 431,000, glucose 59, protein 2.8, LDH 92. Chest x-ray following thoracentesis reveals better aeration at the right base with an NG tube in good position IMPRESSION: 78-year-old with: 1. Acute hypoxemic respiratory failure. 2. Chronic hypercapnic respiratory failure. 3. Bilateral pleural effusions. Thoracentesis has been performed and 1500 mL removed from the right hemithorax. Pleural fluid appears transudative in character. 4. Perforated abdominal viscus, which appears to be improving. 5. Coronary artery disease. 6. End-stage renal disease. PLAN: 1. Discussed case with Dr. Fuentes and aspirate thoracentesis this morning. (This has been completed.) 2. Continue oxygen for hypoxemic respiratory failure. 3. Diet per General Surgery. 4. Overall prognosis is guarded. cc: MD Amos Vázquez MD
[2018-08-05] MEDS: NEO-SYNEPHRINE 50 MG in NS 250 ML IV SCH ×4 (00:58→21:57)
[2018-08-05 04:37] LABS: INR 1.62; PROTIME 20.5 Seconds (11.0-16.0)
[2018-08-05 04:38] LABS: PTT 36.6 Seconds (22.3-41.8)
[2018-08-05] MEDS: DILAUDID IV PRN ×6 (04:38→21:59)
[2018-08-05 04:57] LABS: ALB/GLOB RATIO 0.6; ALBUMIN 2.4 g/dL (3.5-5.0); CALCIUM 8.5 mg/dL (8.8-10.2); CREATININE 6.8 mg/dL (0.7-1.2); POTASSIUM 5.5 mmol/L (3.5-5.1); TOTAL BILIRUBIN 0.59 mg/dL (0.20-1.00); TOTAL PROTEIN 6.2 g/dL (6.3-8.3)
[2018-08-05] MEDS: ZOSYN 2.25 GM in NS 50 ML IV SCH ×3 (05:47→21:59)
[2018-08-05] MEDS ORDERED: NS 2,000 ML MISC PRN (06:25)
[2018-08-05] MEDS: ALBUMIN 25% IV SCH (08:06)
[2018-08-05] MEDS: FLONASE NAS SCH (08:07)
[2018-08-05] MEDS: CLINIMIX E 4.25%-5% SOLUTION 1,000 ML IV SCH ×2 (08:07→08:43)
--- NOTE | 2018-08-05 08:14 | NEPHROLOGY PROGRESS NOTE ---
DATE: 08/05/2018 SUBJECTIVE: He is arousable but his speech was difficult for me to understand. He does complain of being short of breath. OBJECTIVE: Vital Signs: Blood pressure 89/76, heart rate 116, respirations 29, afebrile. Intake 3.7 L. Output 500 mL plus an additional 1.5 L of thoracentesis fluid. General: Sitting up. Closed face mask. Skin is pale. Conjunctivae are pink. Oropharynx is dry. Neck: Neck veins are distended. Trachea is midline. Heart: Irregular and tachycardic. Lungs: Have increased respiratory rate and work of breathing. Abdomen: Soft. Bowel sounds are not appreciated. Minimally tender. Extremities: Have no edema, clubbing, or cyanosis. IMPRESSION: Chronic kidney disease 5D. He will undergo sustained low-efficiency dialysis today with a 3 potassium bath and 30 bicarbonate. We will have a goal of 2 L ultrafiltration as his blood pressure allows. We will administer albumin. He may require daily dialysis given his fluid intake. Blood pressure remains marginal. Pressor support as needed. cc: MD Amos Fernández MD
[2018-08-05] MEDS ORDERED: LMX 5 CREAM TOP PRN (08:54)
--- NOTE | 2018-08-05 13:51 | GENERAL SURGERY PROGRESS NOTE ---
DATE: 08/05/2018 SUBJECTIVE: The patient overall seems to be more comfortable and not requiring as much pain medicine this morning. OBJECTIVE: Vital signs: He is afebrile. Pulse 101 to 115, respiratory rate 13 to 18, blood pressure in the 90s to low 100s. He does remain on a Andrés-Synephrine drip. Cardiovascular: Tachycardic and regular. Respiratory: Bilateral breath sounds, decreased in the left base. Gastrointestinal: Soft, mildly tender in the epigastrium but less tender than yesterday. Nondistended and hypoactive bowel sounds. LABORATORY DATA: INR 1.6. Potassium 5.5, BUN 62, creatinine 6.8. AST 425, ALT 219, alkaline phosphatase 95, total bilirubin 0.59. ASSESSMENT AND PLAN: A 78-year-old male with probable perforated peptic ulcer and respiratory failure. We are treating him conservatively with IV antibiotics, IV Protonix and bowel rest. He is getting Clinimix and lipids for nutrition. He is getting dialysis as needed per Dr. Gonsalez. I think he is still critically ill, but somewhat improved from yesterday. When his mental status improves, I plan to try another swallow study and see if we can begin feeding him by mouth. The ultrasound thoracentesis of the left pleural effusion was put on hold today because of his dialysis, and we plan to pursue that tomorrow. cc: Amos Kendall MD
[2018-08-05] MEDS: LIPOSYN 20% 250 ML IV SCH (16:00)
[2018-08-05] MEDS: PROTONIX IV SCH (16:00)
--- NOTE | 2018-08-05 20:26 | PULMONOLOGY PROGRESS NOTE ---
DATE: 08/05/2018 SUBJECTIVE: The patient is arousable but appears fatigued. He has mild work of breathing and is currently on hemodialysis. OBJECTIVE: Vital signs: Blood pressure 91/68, heart rate 111, respiratory rate 14, oxygen saturation 99%. HEENT: Pupils are equal and reactive. Oropharynx appears clear. Neck: Supple. Chest: Reveals decreased breath sounds, both lung bases. Abdomen: Mildly tender with palpation. Bowel sounds are present. Extremities: Slightly cool to the touch. IMPRESSION: A 78-year-old with: 1. Perforated abdominal viscus. 2. Pleural effusion, status post right-sided thoracentesis. 3. Dyspnea at rest. 4. Abdominal pain. RECOMMENDATIONS: 1. Agree with plans to repeat thoracentesis as outlined per Dr. Kendall. 2. Continue Clinimix as nutrition bridge pending improvement in p.o. status. 3. Continue oxygen or BiPAP as needed. 4. Prognosis is guarded. cc: MD Amos Vázquez MD
[2018-08-06] MEDS: DILAUDID IV PRN ×5 (01:40→20:58)
[2018-08-06] MEDS: CLINIMIX E 4.25%-5% SOLUTION 1,000 ML IV SCH ×2 (03:08→17:59)
[2018-08-06 04:40] LABS: ALLEN TEST YES; BE -4.7 mmoll (-3.0-3.0); BLOOD TYPE ARTERIAL; HCO3-(ACT) 21.2 mmoll (20.0-26.0); METHB 0.4 % (0.0-1.5); O2(CT) 18.9 mL/dL (15.0-23.0); O2HB 95.7 % (95.0-99.0); PCO2(98.6) 49 mmHg (35-45); PO2(98.6) 115 mmHg (60-100); SAMPLE BLOOD; SAO2 96.8 % (95.0-100.0); THB 13.9 g/dL (11.5-17.4); pH(98.6) 7.27 (7.35-7.45)
[2018-08-06 04:41] LABS: MODALITY VENTIMASK
[2018-08-06 05:10] LABS: ALB/GLOB RATIO 0.9; CALCIUM 8.1 mg/dL (8.8-10.2); CREATININE 2.9 mg/dL (0.7-1.2); MAGNESIUM 2.1 mg/dL (1.5-2.7); POTASSIUM 4.8 mmol/L (3.5-5.1); TOTAL BILIRUBIN 0.94 mg/dL (0.20-1.00); TOTAL PROTEIN 6.2 g/dL (6.3-8.3)
[2018-08-06 05:29] LABS: BASO# 0.05 X1000 (0.0-0.2); BASO% 0.4 % (0.0-0.8); EOS# 0.16 X1000 (0.0-0.7); EOS% 1.3 % (0.0-10.0); HEMATOCRIT 36.6 % (42.0-52.0); HEMOGLOBIN 11.6 g/dL (14.0-18.0); IMM GRAN# 0.12 X1000 (0.0-0.04); LYMPH# 3.04 X1000 (1.2-3.4); LYMPH% 25.3 % (20.5-51.1); MCH 31.4 PG (27-31); MCHC 31.7 g/dL (33-37); MCV 99.2 FL (81-99); MONO# 1.06 X1000 (0.11-0.59); MONO% 8.8 % (1.7-9.3); MPV 10.9 FL (7.4-10.4); NEUT# 7.57 X1000 (1.4-6.5); NEUT% 63.2 % (42.2-75.2); PLT 116 X1000 (130-400); RBC 3.69 XMIL (4.7-6.1); RDW 16.9 % (11.5-14.5)
[2018-08-06] MEDS: ZOSYN 2.25 GM in NS 50 ML IV SCH ×2 (05:47→13:00)
[2018-08-06 05:49] LABS: EOS 1 % (1-10); LYMPHS 27 % (21-51); MONO 9 % (1-9); SEGS 63 % (42-75)
[2018-08-06] MEDS: NEO-SYNEPHRINE 50 MG in NS 250 ML IV SCH ×5 (07:32→23:53)
[2018-08-06] MEDS ORDERED: NS 2,000 ML MISC PRN (07:33)
--- NOTE | 2018-08-06 07:43 | Diag Imaging Result Doc PS360 ---
EXAM: CHEST-PORTABLE INDICATION: abnormal exam TECHNIQUE: One view COMPARISON: 08/04/2018 FINDINGS: The NG tube is in stable position. The right pleural effusion is smaller than the previous study. The smaller left pleural effusion is approximately stable. Pulmonary venous congestion and interstitial edema seen bilaterally is again noted. There has been probably slight improvement on the right as compared to previous study. No new consolidation is identified. Cardiac silhouette is stable. IMPRESSION: Interval marginal improvement. Electronically signed by Zeferino Chowdhury 08/06/2018 7:40 AM
[2018-08-06] MEDS: ALBUMIN 25% IV SCH (08:00)
--- NOTE | 2018-08-06 10:11 | Diag Imaging Result Doc PS360 ---
EXAM: CHEST-2 VIEWS INDICATION: POST LEFT U/S THORACENTESIS TECHNIQUE: 2 views COMPARISON: 08/06/2018 FINDINGS: A small pneumothorax has developed on the left at the apex as well as the base status post left thoracentesis. It appears to occupy less than 15% of the left hemithorax. The left pleural effusion has markedly decreased. The right effusion is stable. No new consolidation is identified. Cardiac silhouette is stable. IMPRESSION: Small left pneumothorax status post thoracentesis. A follow-up chest radiograph has been ordered for 2:00 PM today. Electronically signed by Zeferino Chowdhury 08/06/2018 10:09 AM
--- NOTE | 2018-08-06 10:22 | Diag Imaging Result Doc PS360 ---
EXAM: US THORACENTESIS W/IMAGE GUIDE INDICATION: fluid TECHNIQUE: COMPARISON: None. FINDINGS: Consent was obtained by proxy from the patient's family due to the patient's altered mental status. The patient was prepped and draped in sterile fashion and local anesthesia was achieved with 1% lidocaine solution. Using ultrasound guidance, a large bore catheter was inserted into the left pleural space and 1300 mL of orange blood-tinged fluid was aspirated. A postprocedural chest radiograph showed a small left pneumothorax occupying less than 50% of the left hemithorax. No other known complications are appreciated. IMPRESSION: Left thoracentesis complicated by a small left postprocedural pneumothorax. A follow-up chest radiograph will be performed in four hours. Electronically signed by Zeferino Chowdhury 08/06/2018 10:19 AM
[2018-08-06] MEDS: FLONASE NAS SCH (11:33)
--- NOTE | 2018-08-06 12:23 | GENERAL SURGERY PROGRESS NOTE ---
DATE: 08/06/2018 SUBJECTIVE: The patient underwent ultrasound-guided left thoracentesis this morning. He denies significant abdominal pain. He is not hungry. The nurse reports that he seems more confused and weaker than he did a couple of days ago. OBJECTIVE: Vital Signs: He is afebrile, pulse 110, O2 saturation 100%, respiratory rate 13, blood pressure 98/74. General: He is somnolent, but arousable. He does answer a few simple questions, but is certainly very weak. CV: Tachycardic and regular. Respiratory: Coarse bilateral breath sounds. Gastrointestinal: Soft. Minimally tender. Nondistended. Hypoactive bowel sounds. LABORATORY DATA: White blood cell count 12, hemoglobin 11.6, hematocrit 36, platelet count 116,000. PH 7.27, pCO2 of 49, PaO2 of 115, bicarb 21, base deficit -4.7, lactate 1.8. Potassium 4.8, BUN 29, creatinine 2.9, glucose 116. AST 1567, ALT 792, alkaline phosphatase 127. IMAGING: The chest x-ray pre-thoracentesis this morning showed pulmonary venous congestion, interstitial edema, a small right pleural effusion, and a stable left pleural effusion. The chest x-ray this morning post-thoracentesis shows a small, less than 15% left pneumothorax, and a markedly decreased left pleural effusion. ASSESSMENT AND PLAN: A 78-year-old male with probable perforated peptic ulcer. This appears to be stable. However, he has respiratory failure, bilateral pleural effusions, chronic obstructive pulmonary disease, and now an iatrogenic left pneumothorax. He has end-stage renal disease. He remains hypotensive, requiring Andrés-Synephrine. He also has some signs of shock liver. I do not think he has cholecystitis, but will monitor this. We will continue his nothing by mouth status, Clinimix, and lipids for nutrition, and Zosyn and Diflucan, and supportive care. cc: Amos Kendall MD
--- NOTE | 2018-08-06 14:53 | Diag Imaging Result Doc PS360 ---
EXAM: CHEST-PORTABLE 08/06/2018 HISTORY: repeat x ray after thoracentesis TECHNIQUE: Inspiration expiration portable chest at 1412 COMMENT: There is an NG tube which passes below the diaphragm. There is a small left apical pneumothorax. This has not changed significantly since the previous study of 0953. There appears to be some reaccumulation of fluid in the costophrenic sulcus on the left. There is a right pleural effusion and there may be slight worsening in the pulmonary edema or pneumonia on the right. IMPRESSION: Stable left pneumothorax. Increasing left pleural fluid. Worsening pulmonary edema and/or pneumonia. Electronically signed by Adrian Philip 08/06/2018 2:51 PM
[2018-08-06] MEDS: LIPOSYN 20% 250 ML IV SCH (16:09)
[2018-08-06] MEDS: PROTONIX IV SCH (16:34)
--- NOTE | 2018-08-06 17:50 | NEPHROLOGY PROGRESS NOTE ---
DATE: 08/06/2018 SUBJECTIVE: He is on a closed face mask. He is arousable, but obtunded. OBJECTIVE: Blood pressure 81/55, heart rate 128, respirations 22. Intake 2.9 L. Output 2 L. On physical exam, no acute distress. Skin is warm and dry. Closed face mask. Neck veins are distended. Trachea is midline. Heart is irregular and tachycardic. Lungs are equal with increased respiratory rate and a few crackles. Abdomen is soft, diminished bowel sounds. Extremities have minimal edema. No clubbing or cyanosis. IMPRESSION: Chronic kidney disease, 5D. Has neck vein distention and shortness of breath. SLED today. Goal of 3 to 4 L ultrafiltration if his blood pressure allows. cc: MD Amos Fernández MD
[2018-08-06] MEDS ORDERED: NS 500 ML IV ONE ×2 (17:51→18:29)
[2018-08-06] MEDS ORDERED: NS 500 ML ONE (17:58)
[2018-08-06] MEDS: LEVOPHED 8 MG in D5 1/2 NS 250 ML IV SCH (20:56)
[2018-08-06] MEDS ORDERED: CORDARONE 360 MG/D5W 360 MG/200 ML IV.SOLN IV ONE (21:40)
--- NOTE | 2018-08-06 22:26 | PULMONOLOGY PROGRESS NOTE ---
DATE: 08/06/2018 SUBJECTIVE: Patient is fatigued, but arousable. He has undergone a second thoracentesis. He has a small left apical pneumothorax. His breathing has marginally improved, but he is requiring Andrés- Synephrine. OBJECTIVE: Vital Signs: BP 144/99, heart rate 135, respiratory rate 16, oxygen saturation 98%. HEENT: Pupils equal, reactive. Mild temporal wasting. Oropharynx is dry. Neck: Supple. Chest: Diminished breath sounds, right base. Cardiac: Increased rate, irregular rhythm. Abdomen: Soft, but he does report pain with palpation. Extremities: Slightly cool to the touch. LABORATORIES: All cultures are negative to date. White blood count 12.0, hemoglobin 11.6, platelet count 118,000. Arterial blood gas pH 7.27, pCO2 of 49, pO2 of 115. IMPRESSION: A 78-year-old with: 1. Perforated abdominal viscus. 2. Bilateral pleural effusions, status post bilateral thoracentesis. 3. Protein-calorie malnutrition. 4. Dyspnea at rest. 5. Hypotension. 6. Atrial fibrillation with rapid ventricular response. 7. Generalized weakness, with decline during this hospitalization. PLAN: 1. We will initiate amiodarone protocol for uncontrolled atrial fibrillation. 2. Continue oxygen for hypoxemic respiratory failure. Consider BiPAP if indicated. 3. Continue Clinimix as a nutrition bridge. 4. Prognosis is guarded given his age, chronic obstructive pulmonary disease, protein-calorie malnutrition, end-stage renal disease, and heart disease. End of life discussions will be required with the family. cc: MD Amos Vázquez MD
[2018-08-07] MEDS: CLINIMIX E 4.25%-5% SOLUTION 1,000 ML IV SCH ×2 (01:16→12:15)
[2018-08-07] MEDS: ZOSYN 2.25 GM in NS 50 ML IV SCH ×3 (01:16→16:25)
[2018-08-07] MEDS: NEO-SYNEPHRINE 50 MG in NS 250 ML IV SCH ×5 (02:13→12:14)
[2018-08-07] MEDS: DILAUDID IV PRN ×5 (02:34→17:41)
[2018-08-07] MEDS ORDERED: CORDARONE 540 MG in D5W 289.2 ML IV ONE (03:40)
[2018-08-07 03:49] LABS: ALLEN TEST YES; BE -12.9 mmoll (-3.0-3.0); BLOOD TYPE ARTERIAL; HCO3-(ACT) 14.9 mmoll (20.0-26.0); METHB 0.4 % (0.0-1.5); O2(CT) 18.9 mL/dL (15.0-23.0); O2HB 97.2 % (95.0-99.0); PCO2(98.6) 35 mmHg (35-45); PO2(98.6) 311 mmHg (60-100); SAMPLE BLOOD; SAO2 97.7 % (95.0-100.0); THB 13.3 g/dL (11.5-17.4); pH(98.6) 7.21 (7.35-7.45)
[2018-08-07 04:00] LABS: MODALITY BI PAP
[2018-08-07] MEDS ORDERED: NS 1,000 ML IV ONE (04:28)
[2018-08-07] MEDS ORDERED: SODIUM BICARBONATE 8.4% IV PUSH ONE (04:29)
[2018-08-07 04:41] LABS: ALB/GLOB RATIO 1.2; ALBUMIN 3.4 g/dL (3.5-5.0); CALCIUM 8.6 mg/dL (8.8-10.2); CREATININE 2.6 mg/dL (0.7-1.2); PHOSPHORUS 5.4 mg/dL (2.7-4.5); POTASSIUM 5.4 mmol/L (3.5-5.1); TOTAL BILIRUBIN 1.67 mg/dL (0.20-1.00); TOTAL PROTEIN 6.2 g/dL (6.3-8.3)
[2018-08-07] MEDS: LEVOPHED 8 MG in D5 1/2 NS 250 ML IV SCH ×2 (04:53→07:17)
[2018-08-07 06:35] LABS: ALLEN TEST YES; BE -12.3 mmoll (-3.0-3.0); BLOOD TYPE ARTERIAL; HCO3-(ACT) 15.3 mmoll (20.0-26.0); METHB 0.6 % (0.0-1.5); O2(CT) 17.8 mL/dL (15.0-23.0); O2HB 95.4 % (95.0-99.0); PCO2(98.6) 34 mmHg (35-45); PO2(98.6) 101 mmHg (60-100); SAMPLE BLOOD; SAO2 96.3 % (95.0-100.0); THB 13.2 g/dL (11.5-17.4); pH(98.6) 7.23 (7.35-7.45)
[2018-08-07 06:37] LABS: MODALITY BI PAP
--- NOTE | 2018-08-07 07:07 | Diag Imaging Result Doc PS360 ---
EXAM: CHEST-PORTABLE 08/07/2018 HISTORY: Resp. Distress TECHNIQUE: AP portable at 0314 COMMENT: There are bilateral pleural effusions more so on the right than the left. There is diffuse alveolar and interstitial opacity bilaterally. This is worse in the left lower lobe but possibly slightly improved in the right base. There is an NG tube which passes below the diaphragm. IMPRESSION: Worsened pleural effusions and pulmonary edema. Electronically signed by Adrian Philip 08/07/2018 7:05 AM
[2018-08-07] MEDS: ALBUMIN 25% IV SCH (09:11)
[2018-08-07] MEDS: FLONASE NAS SCH (09:29)
--- NOTE | 2018-08-07 10:37 | GENERAL SURGERY PROGRESS NOTE ---
DATE: 08/07/2018 SUBJECTIVE: The patient is more somnolent, nearly obtunded. He is requiring now two pressors, Levophed and Andrés-Synephrine at max amounts. He is also on amiodarone for atrial fibrillation and RVR. OBJECTIVE: Vital Signs: Temperature 97.9 degrees, pulse 135, O2 saturation 94%, respiratory rate 16, blood pressure 101/66. General: He is somnolent. He is arousable to verbal and painful stimuli, but not following commands, not able to converse coherently. CV: Tachycardic. Respiratory: Bilateral coarse breath sounds. He is on BiPAP. Gastrointestinal: Soft, minimally tender, nondistended. LABORATORY DATA: The CBC is pending. PH 7.23, pCO2 of 34, PaO2 of 101, bicarb 15.3, base deficit - 12, lactate 3. Sodium 139, potassium 5.4, chloride 106, CO2 of 14, BUN 29, creatinine 2.6, glucose 154. Total bilirubin 1.67, AST 3650, ALT 1575, alkaline phosphatase 137. IMAGING: Chest x-ray yesterday afternoon showed a stable small apical pneumothorax on the left. He has increasing left pleural fluid despite thoracentesis yesterday. He has worsening pulmonary edema and/or pneumonia. Chest x-ray this morning shows bilateral pleural effusions, right greater than left, diffuse alveolar and interstitial opacity bilaterally, worse in the left lower lobe. ASSESSMENT AND PLAN: A 78-year-old male with probable perforated peptic ulcer, now with worsening multiorgan failure. His cardiovascular collapse has worsened. His respiratory status is worsening. His mental status is worsening. I have discussed this frankly with the family that the prognosis is very poor. I do not expect him to survive this. I do think we can continue supporting him and trying to keep him as comfortable as possible. I discussed with them DO NOT RESUSCITATE status, in that I think it would be a likely futile effort to initiate chest compressions or shocking him or putting him on a ventilator. They will think about this and discuss with the other consultants. I will put in a central line today for better intravenous access to continue his supportive care, and they are in agreement with that. cc: Amos Kendall MD
--- NOTE | 2018-08-07 10:37 | OPERATIVE NOTE ---
PROCEDURE DATE: 08/07/2018 PREOPERATIVE DIAGNOSIS: Multiorgan failure. POSTOPERATIVE DIAGNOSIS: Multiorgan failure. PROCEDURE: Insertion of central venous catheter. SURGEON: Amos Kendall MD. ESTIMATED BLOOD LOSS: Scant. COMPLICATIONS: None apparent. TECHNIQUE: He was kept supine in his ICU bed. The right groin was prepped and draped in the usual sterile fashion. 1% lidocaine was used to anesthetize the skin. The femoral artery was palpated and medial to it I accessed the femoral vein with 1 stick, drawing back dark nonpulsatile blood. The wire passed easily through the needle, the track was dilated, and a triple-lumen central venous catheter was passed over the wire into the vein via the Seldinger technique. Each port jesica back blood easily and was flushed with saline easily. The port was anchored to the skin with silk suture and a sterile dressing was applied. There were no apparent complications. cc: Amos Kendall MD
--- NOTE | 2018-08-07 13:37 | NEPHROLOGY PROGRESS NOTE ---
DATE: 08/07/2018 SUBJECTIVE: He is worse today. He is obtunded. Tachypneic. He has been markedly hypotensive, requiring fluid boluses and 2 pressors. OBJECTIVE: Vital Signs: Blood pressure 86/70, heart rate 110, respiration 13, afebrile. Intake and Output: Intake 6.3 L. Output 1.5 L. On physical exam, as above. Skin is warm, multiple bruises. Conjunctivae are pink. Oropharynx is dry. Neck veins are not appreciated. Heart is irregular and tachycardic. Lungs are equal, shallow, a few crackles. Abdomen is soft, nontender. Bowel sounds are not appreciated. Extremities: Minimal edema. IMPRESSION: 1. Volume overload. He will not tolerate dialysis today so we will withhold it. 2. Significant metabolic acidosis. 3. Moderate hyperkalemia. 4. Shock liver. 5. Hypotension. 6. Very poor prognosis. cc: MD Amos Fernández MD
[2018-08-07] MEDS: PROTONIX IV SCH (16:25)
[2018-08-07] MEDS: LIPOSYN 20% 250 ML IV SCH (18:44)
--- NOTE | 2018-08-08 00:13 | PULMONOLOGY PROGRESS NOTE ---
DATE: 08/07/2018 INTERIM HISTORY: The patient has had progressive hypotension requiring progressive increase in vasopressors. Arterial blood gases have revealed progressive lactic acidosis. He has had progressive increase in oxygen requirements. He is obtunded but arousable. OBJECTIVE: Vital signs: The patient has been afebrile for the last 24 hours. Blood pressure 78/46, heart rate 122, oxygen saturation 95%. HEENT: Pupils are equal. Bitemporal wasting. Oropharynx appears dry but limited evaluation with BiPAP. Neck: Supple. Chest: Reveals coarse rhonchi bilaterally. Cardiac Exam: Increased rate, irregular rhythm. Abdomen: Soft. Extremities: Cool to the touch. LABORATORIES: Sodium 139, potassium 5.4, chloride 106, bicarbonate 14, BUN 29, creatinine 2.6, bilirubin 1.67, AST 3650, ALT 1575. Arterial blood gas at 3:39 this morning revealed a pH of 7.21, pCO2 of 35, pO2 of 311 with a lactate of 5.3. Arterial blood gas at 6:30 this morning reveals a pH of 7.23, pCO2 of 34, pO2 of 101 with a lactate of 6. Chest x-ray reveals increasing pleural effusions and edema. IMPRESSION: A 78-year-old with: 1. Perforated abdominal viscus (ulcer suspected). 2. Bilateral pleural effusions, status post bilateral thoracentesis. 3. Protein-calorie malnutrition. 4. Progressive hemodynamic shock requiring increased vasopressors. 5. Progressive lactic acidosis. 6. Progressive shock liver/ischemic hepatitis. 7. Atrial fibrillation with rapid ventricular response, requiring amiodarone. DISCUSSION: A 78-year-old with multi-organ failure with progression as outlined above. I agree with Dr. Kendall that he is not going to survive this hospitalization. I had a long discussion with the family at the bedside. It is my recommendation that we pursue comfort measures and avoid intubation, CPR, and cardioversion. They have agreed with this plan and will complete the appropriate documents to allow the patient to have a natural . Shortly after our discussion, they have requested that we remove vasopressor support. PLAN: 1. DNR level 1/Allow Natural . 2. Continue comfort measures only. Critical Care TIME SPENT WITH FAMILY AND WITH MANAGEMENT OF PATIENT: 30+ minutes. cc: MD Amos Vázquez MD [facility] SERVICES[facility]
[2018-08-08] MEDS: DILAUDID IV PRN ×7 (00:40→22:01)
--- NOTE | 2018-08-08 10:25 | GENERAL SURGERY PROGRESS NOTE ---
DATE: 08/08/2018 SUBJECTIVE: The patient continues to have some response to painful stimuli. He is being treated palliatively. He is a DNR Level 1 now. His pressors and fluids have been turned off since yesterday afternoon. OBJECTIVE: Vital Signs: Temperature 98.5, pulse 109, respirations 11, blood pressure 61/24, and O2 saturation 95%. General: He is nearly obtunded, however, he does seem to respond to his name being called and he is responsive to painful stimuli. Otherwise, he appears to be resting comfortably. CV: Tachycardic and irregular. Respiratory: Coarse bilateral breath sounds with tachypnea and some wheeze. GI: Soft, nontender, and nondistended. Bowel sounds are quiet. LABORATORY DATA: None today. IMAGING: None today. ASSESSMENT AND PLAN: A 78-year-old male with multiorgan failure, probable perforated viscus. His mortality remains very high and we are pursuing comfort measures. I will put in for a transfer to a private room. I have discussed this with the family and answered their questions. I anticipate demise within the next 24 hours. cc: Amos Kendall MD
[2018-08-09] MEDS: DILAUDID IV PRN ×5 (01:00→22:39)
--- NOTE | 2018-08-09 17:36 | NEPHROLOGY PROGRESS NOTE ---
DATE: 08/09/2018 This is a visit primarily to address the patient's family and review his symptoms. He is resting comfortably. Family states that he is not short of breath. He does have significant swelling and we discussed this. He has no intake at this point. Care reviewed. No changes. cc: MD Amos Fernández MD
[2018-08-10] MEDS: DILAUDID IV PRN ×5 (02:40→20:31)
--- NOTE | 2018-08-10 10:14 | PROGRESS NOTE ---
DATE: 08/10/2018 SUBJECTIVE: Mr. Bassett is a patient of Dr. Kendall. He has been in the ICU. There is a question of whether he had a perforated duodenal ulcer. He has been transferred to the floor for comfort care. OBJECTIVE: This morning he is sleeping comfortably, and his family is at the bedside. He is not making any urine. He is tachycardic with a heart rate of 123 to 137. He is hypotensive with a blood pressure 70/22. He is getting pain medicine as needed. I answered questions of the family. cc: MD Amos Motley MD
[2018-08-11] MEDS: DILAUDID IV PRN ×8 (04:49→22:14)
[2018-08-11] MEDS ORDERED: ATROPINE 1 % OPHTH SOLN SL PRN (12:29)
[2018-08-11] MEDS ORDERED: TYLENOL PR PRN (12:29)
[2018-08-11] MEDS: ATIVAN IV PRN ×5 (13:55→22:14)
--- NOTE | 2018-08-11 15:13 | GENERAL SURGERY PROGRESS NOTE ---
DATE: 08/11/2018 SUBJECTIVE: The patient remains in the hospital. He has had no significant changes since Saturday after we decided to make him DNR level 1 and initiate comfort care measures. His antibiotics were stopped. His pressors were stopped. He is not undergone any dialysis. His Clinimix was stopped and the consultants and I expected him to pass fed fairly quickly. However, he is still here and alive but otherwise has not changed. He has received a few doses of Dilaudid over the weekend and still seems to respond to painful stimuli or voice either winces or moans. OBJECTIVE: Vital Signs: His most recent pulse on the was 137, this morning is 27. Systolic blood pressure on the was 38 and currently 51. His oxygen saturation on the was 97, currently 88. He is receiving oxygen through a Venturi mask. General: He remains obtunded, but minimally responsive to painful stimuli or voice. He cannot follow commands. Respiratory: He is tachypneic. He has decreased breath sounds in the right mid and lower lung murphy and left lower lung murphy. CV is bradycardic. GI soft nondistended, somewhat tender to palpation, although the exam is difficult with his mental status. Extremities he has generalized body wall edema. LABORATORY: None IMAGING: None. ASSESSMENT AND PLAN: 78-year-old male with multiorgan failure as result of a probable perforated peptic ulcer and chronic pulmonary hypertension, chronic obstructive pulmonary disease, end-stage renal disease and heart failure. His chances of survival again are abysmal. I still think pursuing comfort measures is appropriate. I have discussed this with Dr. Gonsalez, Dr. Ornelas and the family and they are in agreement. I will consult inpatient Hospice. cc: Amos Kendall MD
[2018-08-12] MEDS: ATIVAN IV PRN ×5 (00:09→11:28)
[2018-08-12] MEDS: DILAUDID IV PRN ×5 (00:09→11:28)
[2018-08-12 07:36] VITALS: BP 57/16
--- NOTE | 2018-08-12 08:25 | PULMONOLOGY PROGRESS NOTE ---
DATE: 08/03/2018 SUBJECTIVE: The patient is unresponsive. He appears to be comfortable. OBJECTIVE: Vitals: Blood pressures are reviewed. The majority of his blood pressures are 70 or less. He did have an erratic blood pressure at 0720 hours this morning of 152. Most recent blood pressure 51/26. HEENT: Pupils appear to be reactive, but were not fully open for comfort measures. Oropharynx appears dry. Neck: Supple. Chest: The chest reveals shallow breath sounds bilaterally, with occasional rhonchi. Cardiac exam: S1-S2. Abdomen: Soft. Extremities: The extremities reveal no significant edema. LABORATORIES: No new laboratory data. IMPRESSION: A 78-year-old with 1. End-stage renal disease, on hemodialysis. 2. Chronic obstructive pulmonary disease. 3. Failure to thrive, with ongoing weight loss and recurrent effusions. 4. Cardiac dysrhythmias. 5. Presumptive abdominal viscus perforation. DISCUSSION: This is a 78-year-old with multi-organ failure as outlined above. He has had withdrawal of care and remains alive but remains hypotensive. He has not had recent blood work but most likely has evidence of significant multi-organ failure. At this juncture, he is not likely to survive. He was having a downhill course prior to this admission and prior to the perforation. He currently is comfortable and well managed. His family is comfortable and realizes that comfort is the primary goal. RECOMMENDATIONS: 1. Continue comfort measures. 2. Agree with plans for hospice evaluation. The patient is actively dying and is a candidate for inpatient hospice. cc: MD Amos Vázquez MD
--- NOTE | 2018-08-12 23:51 | DISCHARGE SUMMARY ---
ADMISSION DATE: 08/01/2018 DISCHARGE DATE: 08/12/2018 NOTE: DATE: 08/12/2018. TIME: 1605 SUBJECTIVE: The patient had no acute events overnight. Since getting some Ativan, he has been more comfortable. OBJECTIVE: His last set of vital signs this morning were temperature 97.9 degrees, pulse 66, respirations 17, blood pressure 57/60, O2 saturation 97%. Currently, however, he is showing apneic breaths. He is unresponsive. His extremities are cool and mottled, and as I spoke with the family, he stopped breathing. I could not auscultate any breath sounds or cardiac activity. He did not have a palpable pulse. His pupils were fixed and dilated, and he is pronounced at 4:05 p.m. today. cc: Amos Kendall MD
== END 2018-08-12 16:10 | disposition expired | DRG 380 ==
LOC: ED 06:24 → EDIPHOLD 06:25 → ICU 14:42 → 3N 08-08 15:48
PROVIDERS: ADMIT Surgery; ATTEND Surgery
CPT/HCPCS: 32421; 32555; 71010; 71020; 71045; 71046; 74019; 74020; 74022; 74176; 80048; 80053; 80069; 82150; 82550; 82805; 82945; 82948; 83605; 83615; 83690; 83735; 83880; 83986; 84100; 84157; 84484; 85025; 85027; 85610; 85730; 86850; 86900; 86901; 87070; 87102; 87116; 87147; 87205; 87206; 88112; 89051; 93005; 94640; 94660; 94761; 94762; 96361; 96365; 96367; 96375; 96376; 99285; A9270; C9113; J0282; J1170; J1450; J1644; J2060; J2370; J2405; J2543; J7030; J7040; J7050; J7060; P9047; S0164; XXXXX